=== PATIENT | male | born 1995 | race Hispanic/Latino ===

== ENCOUNTER 2018-05-30 06:18 | Day surgery (SDC) | payer BC ==
[2018-05-23 10:52] VITALS: BMI 22.2
[2018-05-30] MEDS ORDERED: Midazolam 2 MG/2 ML VIAL ONE (07:13)
[2018-05-30] MEDS ORDERED: Propofol 10 mg/ml Inj (20 ML) ONE (07:13)
[2018-05-30] MEDS ORDERED: Rocuronium 10 mg/ml (5 ml) ONE (07:14)
[2018-05-30] MEDS ORDERED: Succinylcholine 200 mg/10 ml Inj IV ONE (07:14)
[2018-05-30] MEDS ORDERED: Liquid Adhesive TOP ONE (07:38)
[2018-05-30] MEDS ORDERED: Bupivacaine HCl 0.5% PF (30 ml) Inj ONE (07:38)
[2018-05-30] MEDS ORDERED: Lidocaine 2% Inj (20ml) IJ ONE ×2 (08:05)
[2018-05-30] MEDS ORDERED: Lactated Ringer's 1,000 ML IV ONE (08:23)
[2018-05-30] MEDS ORDERED: Bacitracin Ointment 30 GM TUBE ONE (08:59)
[2018-05-30] MEDS ORDERED: HEMOSTATIC MATRIX 10 ML DIS.NEEDLE TOP ONE (09:01)
[2018-05-30] MEDS ORDERED: HYDROmorphone 1 mg/ml ISec ONE (10:26)
[2018-05-30] MEDS ORDERED: Lactated Ringer's 1,000 ML IV SCH (10:30)
[2018-05-30] MEDS ORDERED: HYDROmorphone 0.5 mg/0.5 ml ISec IVP PRN (10:30)
[2018-05-30] MEDS: HYDROmorphone 1 mg/ml ISec IVP PRN ×2 (10:30→11:09)
[2018-05-30 12:26] VITALS: RESP 18
--- NOTE | 2018-05-30 14:35 | RAD ---
Date of service: 05/30/2018 PROCEDURE: Intraoperative Fluoroscopy. HISTORY: INTERSTIM PLACEMENT STAGE ONE FINDINGS: Fluoroscopic assistance was provided for neurostimulator placement. Please refer to the operative report from LEOBARDO Timmons. Total fluoroscopic time (continuous mode) utilized during the procedure 97.0 (seconds). Total exam DLP: 37.21 (mGy).
[2018-05-30 16:39] VITALS: BP 111/66; PULSE 59; TEMP 98.4; O2SAT 100
--- NOTE | 2018-05-30 19:45 | OP ---
Copied To: Macho Howard M.D. Attending MD: Macho Howard M.D. PROCEDURE DATE: 05/30/2018 SURGEON: Macho Howard MD INDICATIONS: Mr. Sweeney is a 22-year-old male with overactive bladder, urge incontinence, and pelvic pain. He presented to my office after having undergone multiple interventions by at least 6 urologists including overactive bladder medications, Flomax and amitriptyline. He has seen pelvic floor therapy. He has had undergone pelvic injections and the pain and urgency are unremitting and unrelenting. Therefore, we brought him today for a stage I InterStim as he has exhausted all other possible treatment modalities. OPERATIVE DETAILS: The patient was brought to the operating room and placed in the prone position. MAC anesthesia was administered. We then called a time-out, verifying patient name, procedure, antibiotics, and allergies. We proceeded to make a local anesthesia of 0.5% Marcaine and lidocaine over the sacral promontory in the right and left of midline. We then marked our S3 foramen using fluoroscopy and advanced a needle guide into the S3 foramen on both sides. We stimulated both sides verifying that we had good sensation and motor which we did. We then placed a guidewire through the needle and withdrew the needle in the Seldinger technique and left the wire in place, over which we passed a dilator. Every set was verified using fluoroscopy. Once the dilator was in, we deployed our lead again verifying its location under fluoroscopy with good placement both in the AP and lateral directions. We stimulated and again had motor and sensory response on both sides. At this point, we were satisfied and deployed our lead. We removed the dilator and left the leads in place. We then made approximately 3-inch incision on the right lateral gluteus through the subcutaneous tissues down to fascia overlying the muscle. We made a pocket and tunneled our leads to this pocket. The right side was marked with a Prolene stitch, the left side with a silk. We then tunneled to the contralateral left side and exteriorized the leads extension. At this point, we were satisfied. We irrigated our pocket copiously with sterile water. We got excellent hemostasis using electrocautery. We closed the pocket in two layers, closed the skin using Monocryl. At this point, placed our dressing with Tegaderm. Of note, the entire procedure was done "no touch," as there was an Ioban dressing placed preoperatively, so we never made contact with the skin directly. At this point, I was satisfied with the leads were in place that the procedure had gone as planned. We terminated the case, awakened the patient from the sedation, transferred to the recovery room in good, stable condition. The patient was in touch with [facility] who will educate him as to the program and the patient will be in touch with him over the next 10 days. If the touch base InterStim stage I works and he is satisfied with his relief, then we will proceed the stage II. If not, we will abort, remove the leads and plan for further management. Macho Howard M.D.
== END 2018-05-30 16:45 | disposition home or self-care (01) ==
LOC: H.OPSURG 06:18
PROVIDERS: ATTEND Urology
DX: N39.41 Urge incontinence (principal); N32.81 Overactive bladder; R10.2 Pelvic and perineal pain
CPT/HCPCS: 64581; C1778; C1787; C2615; J0690; J1170; J2250; J2405; J3010; J7030; J7120

== ENCOUNTER 2018-06-11 06:46 | Day surgery (SDC) | payer BC ==
[2018-05-23 10:52] VITALS: BMI 22.2
[2018-06-11 07:35] VITALS: RESP 18
[2018-06-11] MEDS ORDERED: Propofol 10 mg/ml Inj (20 ML) ONE (08:26)
[2018-06-11] MEDS ORDERED: Midazolam 2 MG/2 ML VIAL ONE (08:26)
[2018-06-11] MEDS ORDERED: Lidocaine 1% 5ml Abboject IV ONE (08:27)
[2018-06-11] MEDS ORDERED: Lactated Ringer's 1,000 ML IV ONE (09:21)
[2018-06-11] MEDS ORDERED: Bupivacaine 0.5% Inj(30mL) INFIL ONE (09:25)
[2018-06-11] MEDS ORDERED: Lidocaine 1% Inj (20ml) INFIL ONE (09:25)
[2018-06-11] MEDS ORDERED: ceFAZolin IV 1 gm in Dextrose 1 GM/50 ML BAG IVPB ONE (09:27)
[2018-06-11] MEDS ORDERED: HYDROmorphone 1 mg/ml ISec IVP PRN (09:59)
[2018-06-11] MEDS ORDERED: Lactated Ringer's 1,000 ML IV SCH (10:00)
[2018-06-11 12:20] VITALS: O2SAT 100
[2018-06-11 13:17] VITALS: BP 112/63; PULSE 61; TEMP 97.6
--- NOTE | 2018-06-12 08:40 | OP ---
Copied To: Macho Howard M.D. Attending MD: Macho Howard M.D. PROCEDURE DATE: 06/11/2018 The patient is 22-year-old male with severe urge incontinence, pelvic pain, and hot flashes complaints. He had stage I InterStim placed approximately 10 days ago with a successful trial. His incontinence has resolved. As a result, the hot flashes feeling has somewhat resolved and his pain has significantly reduced. Given examination of his voiding diary and after discussing with [employer] rep, who confirms my assessment to be proceeded today with the stage II implant. After bringing the patient to the operating room, we placed him in the prone position. Sedation was administered. We prepped and draped the patient in usual sterile fashion including a pre-scrub with Chlorhexidine solution. We prepped and draped the patient in the usual sterile fashion. We then called a time-out, verifying patient name, procedure, antibiotics, and allergies. We proceeded to infiltrate local anesthetic with 0.5% Marcaine and 2% lidocaine into the previously made incision over the right gluteus region. This incision was very superficial so as not to violate the pocket. Once this was done, we used a mosquito clamp to open up the deep pocket and a gush of fluid was seen signifying that we are in the right level. The extensions from the InterStim were identified and the right lead was from the extension with the provided [employer] screwdriver and was buried. The left lead was from the extension, cleaned with sterile water, dried, and connected to the [employer] battery pack. The [employer] battery pack was then placed within the antibiotic impregnated Vicryl pouch and placed within the pocket. Impedance was checked via the [employer] rep and the device appeared to be functioning properly. At this point, we were satisfied that we could terminate the case. We closed the pocket using 2-0 Vicryl suture, closed the skin using 4-0 Monocryl suture, applied Dermabond and Steri-Strips to the wound. Awakened the patient from anesthesia and transferred to the recovery room in good, stable condition. PROCEDURE: Stage II InterStim implant. Macho Howard M.D. [facility] # [id number]
== END 2018-06-11 13:51 | disposition home or self-care (01) ==
LOC: H.OPSURG 06:46
PROVIDERS: ATTEND Urology
DX: N39.41 Urge incontinence (principal); R10.2 Pelvic and perineal pain
CPT/HCPCS: 64590; C1767; C1787; J0690; J2250; J2704; J2765; J3010; J7030; J7120